=== PATIENT | female | born 1965 | race Caucasian/White ===

== ENCOUNTER → 2023-12-02 | Outpatient (CLI) | payer MEDICARE, OTHER ==
[~2023-12-02] MED LIST: 00186-0370-20 IH; 00186-0372-20 IH; ANORO IH; BUDEPRION SR150 M1 PO; COZAAR 25MG25 MG/TAB PO; CYMBALTA 20MG20 MG PO; CYMBALTA 60MG60 MG PO; CYTOMEL 5MC5 MCG/TAB PO; DALIRESP500 MCG PO; EFFEXOR-XR150 MG PO; FLONASEALLERGY NS; HCTZ12.5TAB PO; IRON TABLETS325 MG PO; LAMICTAL 25MG T25 MG PO; LAMICTAL150 MG PO; LIPITOR20 MG PO; NEURONTIN300 MG/CAP PO; PLAQUENIL 200M200 MG PO; PREDNISONE 2.52.5 MG PO; PREDNISONE10 MG PO; PREMARIN 1.251.25 MG PO; PRIL40 PO; PRILOSEC 20MG20 MG PO; RITE AID KRILL500 MG PO; SINGULAIR 110 MG/TAB PO; THEO-DUR 3300 MG/TAB PO; TOPROL XL 50MG50 MG PO; TOPROL XL100 MG PO; TYLENOL W/COD1 UDTAB PO; VITAMIN D31000 IU PO; VITAMIND3 5000 PO; ZANAFLEX 4MG TAB4 MG PO
== END ==
LOC: COL.RAD 14:31
DX: R76.8 Other specified abnormal immunological findings in serum (principal)

== ENCOUNTER → 2023-12-20 | Outpatient (CLI) | payer MEDICARE, OTHER | LOC: COL.RAD 08:37 | DX: M54.2 Cervicalgia (principal); E04.1 Nontoxic single thyroid nodule ==

== ENCOUNTER → 2023-12-26 | Outpatient (CLI) | payer MEDICARE | LOC: MHCPAIN 14:51 | DX: M54.2 Cervicalgia (principal); M25.511 Pain in right shoulder; M25.512 Pain in left shoulder; R26.89 Other abnormalities of gait and mobility; I73.9 Peripheral vascular disease, unspecified; M32.9 Systemic lupus erythematosus, unspecified | CPT/HCPCS: G0463 ==

== ENCOUNTER → 2024-01-21 | Outpatient (CLI) | payer MEDICARE | LOC: MHCPAIN 14:28 | DX: M79.7 Fibromyalgia (principal); R26.89 Other abnormalities of gait and mobility; I73.9 Peripheral vascular disease, unspecified; M79.2 Neuralgia and neuritis, unspecified; M32.9 Systemic lupus erythematosus, unspecified | CPT/HCPCS: G0463 ==